=== PATIENT | male | born 1945 | race Caucasian/White ===

== ENCOUNTER 2017-06-30 14:07 | Inpatient (IN) | payer MEDICARE, SELFPAY ==
[2017-06-30] MEDS: Sodium Chloride 0.9% 1,000 ML IV SCH (16:30)
[2017-06-30] MEDS ORDERED: Norepinephrine 8 MG/0.9% NS 250 ML ONE (16:48)
[2017-06-30] MEDS ORDERED: Norepinephrine 8 MG/0.9% NS 250 ML IVPB SCH (17:00)
--- NOTE | 2017-06-30 19:17 | RAD ---
PORTABLE CHEST: 06/30/17 HISTORY: Post intubation. Endotracheal and NG tubes are in satisfactory position. Heart size is within normal limits. The patie nt is rotated on this study. There is interstitial alveolar lung changes which are predominantly in t he perihilar distribution, most consistent with pulmonary edema. There is scoliotic change to the spi ne. IMPRESSION: 1. Endotracheal and NG tubes in satisfactory position. 2. Pulmonary edema changes. POS: SHEREE
[2017-06-30 20:07] LABS: Bilirubin Small (Negative); Blood, Urine Trace (Negative); Clarity CLOUDY (Clear); Glucose, Urine (Dipstick) Negative (Negative); Leukocyte Trace (Negative); Nitrite Negative (Negative); Protein, Urine (Dipstick) 100 mg/dL (Neg-Trace); Specific Gravity, Urine 1.025 (1.002-1.036); Urobilinogen 0.2 mg/dL (0.2-1.0); pH, Urine 5.5 (5.0-9.0)
[2017-06-30 20:12] LABS: Bacteria/HPF None Seen HPF (None Seen); Pathc Cast-AUWi Flag 1.76 (0-2.49); Yeast-AUWi Flag 170.3 (0-25.0)
[2017-06-30 20:21] LABS: Crystals/HPF 1+ AMORPH URATES HPF (Negative); Hyaline Casts/LPF 4-6 HYALINE CAST LPF (0-3 Hyaline); Renal Epithelial 0-3 HPF (0-3); Transitional Epithelial 0-3 HPF (0-3); Yeast-All Forms None Seen HPF (None Seen)
[2017-06-30] MEDS ORDERED: Cefepime 1 GM in Sodium Chloride 0.9% 100 ML IVPB SCH (21:00)
[2017-06-30] MEDS: Cefepime 1 GM, Admixture Fee 1 EACH in Sterile Water 10 ML SLOW IVP SCH (21:17)
[2017-06-30] MEDS: Enoxaparin Sodium 40 MG/0.4 ML SYRINGE SC SCH (21:18)
--- NOTE | 2017-06-30 23:11 | PRG ---
DATE OF SERVICE: 06/30/2017 The patient was transferred from [place] earlier. There were no family members. I finally got a maria ce to talk to the patient's refrigeration mechanic who is nephew. The patient has no other family members, no , he has no kids, he has got two brothers, but the ne phew is apparently his refrigeration mechanic. He was a DNR before, but he tells me he was doing well yesterday. His oxygen saturations were 95%, he is breathing well. This morning, his condition drastically ramana nged. Therefore, he rescinded the DNR status. I made him a full code since he felt he wanted to giv e him all the best options. He was transferred here following intubation. I discussed the findings with the nephew that the patient has ARDS, the prognosis is poor, mortality is very high at least 50% . We are going to continue all supportive care for the time being including vent, nutrition, PT, antibi otics, etc. Additional information from the nephew that the patient has been healthy. He has remote history of a ppendix surgery and hernia operation. Apparently, he was taking no medications. He is nonsmoker wit h no previous history of TB, pneumonia, or bronchial asthma. He has a longstanding history of stasis of his edema, which has been a poor circulation, but his cardiac status has been normal. IMPRESSION: Respiratory failure, adult respiratory distress syndrome secondary to the flu. Stasis e patrick. Continue supportive care as noted above.
--- NOTE | 2017-07-01 01:16 | HP ---
CHIEF COMPLAINT: Transferred to this hospital, intubated with flu positive. HISTORY OF PRESENT ILLNESS: He is a 72-year-old went to another ER today because of fever and chills, having vomiting, diarrhea, and cough for a few days. Over there, flu came back positive. He also had hyponatremia 124, so they treated with IV fluid and they tried to admit him to the hospital over there, he got sick, he got hypoxic and eventually they intubated him and sedated him. After intubation, they started to transfer the patient to this hospital and patient was transferred to the hospital. Dr. Avila his powerhouse mechanic supervisor was also consulted. PAST MEDICAL HISTORY: From the chart. He has a history of brain tumor as a child, scoliosis. FAMILY HISTORY: Noncontributory. MEDICATIONS: None. ALLERGIES: No medications. SOCIAL HISTORY: Nonsmoker, lives with a nephew. REVIEW OF SYSTEMS: Unobtainable because patient is intubated and sedated. PHYSICAL EXAMINATION: GENERAL: Elderly man, intubated and sedated on 100%Fio2 NECK: Supple, no JVD. CHEST: Diminished breath sounds. CARDIOVASCULAR: S1, S2 audible. No S3, S4. ABDOMEN: Soft. EXTREMITIES: No pedal edema. LABORATORY DATA: Shows WBC 10.1 wi Chest shows cardiomegaly with pulmonary edema. His glucose is 118, creatinine 0.6, sodium 131, potassium 3.4, chloride 88, carbon dioxide 32. Flu positive. ASSESSMENT AND PLAN: 1. Acute respiratory failure with hypoxia secondary to flu with b/l pneumonia. He is on IV cefepime 2 grams q.12 hours, IV Levaquin 750 every day, and Tamiflu per NG tube 2. Hypotension . Septic shock, continue pressure support IV norepinephrine. 3. Prognosis guarded. 4. Deep venous thrombosis prophylaxis with Protonix and Lovenox. 5 D/w Nephew about his condition, He decided for NO CPR now MTDD
[2017-07-01 04:39] LABS: #Lymphocytes 0.4 thou/uL (1.20-3.40); #Monocytes 0.3 thou/uL (0.11-0.59); #Neutrophils 4.3 thou/uL (1.40-6.50); %Lymphocytes 8.2 % (21.0-51.0); %Monocytes 6.1 % (0.0-10.0); %Neutrophils 85.7 % (42.0-75.0); Hemoglobin 14.3 g/dL (14.0-18.0); Mean Corpuscular Hemoglobin 31.3 pg (27.0-31.0); Mean Corpuscular Volume 97.6 fl (80.0-94.0); Mean Platelet Volume 7.1 fL (7.4-10.4); Platelet Count 202 thou/uL (130-400); RBC Distribution Width 12.1 % (11.5-14.5); Red Blood Cell (RBC) Count 4.58 mill/uL (4.70-6.10)
[2017-07-01 04:48] LABS: Anion Gap 16 mmol/L (10-20); BUN (Urea Nitrogen) 21 mg/dL (8.4-25.7); Calc. Creatinine Clearance 88 mL/min (70-130); Calcium 8.6 mg/dL (7.8-10.44); Carbon Dioxide 31 mmol/L (23-31); Chloride 93 mmol/L (98-107); Estimated GFR-MDRD Greater than 90; Glucose 136 mg/dL (80-115); Potassium 3.2 mmol/L (3.5-5.1); Sodium 137 mmol/L (136-145)
[2017-07-01] MEDS: Sodium Chloride 0.9% 1,000 ML IV SCH ×2 (06:24→13:18)
[2017-07-01 07:54] LABS: Actual Bicarbonate (HCO3a) 31.7 mEq/L (22-26); Base Excess (BEa) 6.4 mEq/L (0 (+/-) 2.5); Calcium, Ionized 1.1 mmol/L (1.12-1.30); Hematocrit-ABG 43.5 % (42.0-52.0); Hemoglobin (Hb) 13.6 g/dL (14.0-18.0); O2 Tension (PaO2) 106.6 mmHg (80.0-100.0); pH, Arterial 7.44 (7.35-7.45)
[2017-07-01 07:56] LABS: Puncture Site LRA
[2017-07-01] MEDS ORDERED: Pantoprazole 40 MG VIAL IVP SCH (09:00)
[2017-07-01] MEDS ORDERED: Oseltamivir 6 MG/ML ORAL SUSP PO SCH (09:00)
[2017-07-01] MEDS ORDERED: FLU VACC TS2017-18 (>65YR) 0.5 ML SYRINGE IM ONE (09:00)
[2017-07-01] MEDS ORDERED: Sedation Protocol FS ONE (09:20)
[2017-07-01] MEDS ORDERED: CCU Electrolyte Replacement 1 EACH FS ONE (09:20)
--- NOTE | 2017-07-01 09:25 | PDOC.PULCC ---
CCU Progress Note: Subj/Obj - Subjective Date: 07/01/17 Time: 09:24 - Objective Allergies/Adverse Reactions: Allergies Allergy/AdvReac Type Severity Reaction Status Date / Time No Known Allergies Allergy Unverified 06/30/17 17:49 Medications: Current Medications Albuterol/Ipratropium (Duoneb) 3 ml NEB [id number] [facility] Last Admin: 07/01/17 06:59 Dose: 3 ml Enoxaparin Sodium (Lovenox) 40 mg SC 2100 [facility] Last Admin: 06/30/17 21:18 Dose: 40 mg Levofloxacin 750 mg/ Device 150 mls @ 100 mls/hr IVPB Q24HR [facility] Last Admin: 06/30/17 19:34 Dose: 150 mls Norepinephrine Bitartrate (Levophed) 250 mls @ 0 mls/hr IVPB INF SAN[facility]A; Titrate PRN Reason: Protocol Sodium Chloride (Normal Saline 0.9%) 1,000 mls @ 100 mls/hr IV .Q10H [facility] Last Admin: 07/01/17 06:24 Dose: 1,000 mls Cefepime HCl 1 gm/Miscellaneous Medication 1 each/ Sterile Water 10 mls @ 120 mls/hr SLOW IVP BID [facility] Last Admin: 06/30/17 21:17 Dose: 10 mls Methylprednisolone Sodium Succinate (Solu-Medrol) 40 mg IVP Q6HR [facility] Last Admin: 07/01/17 06:24 Dose: 40 mg Oseltamivir Phosphate (Tamiflu) 75 mg PO BID [facility] Pantoprazole Sodium (Protonix) 40 mg PO DAILY [facility] MAR Reviewed: Yes Vital Signs and I&O: Vital Signs Temp 98.4 F 07/01/17 08:00 Pulse 45 L 07/01/17 07:00 Resp 21 H 07/01/17 06:59 BP 145/71 H 07/01/17 07:00 Pulse Ox 96 07/01/17 06:59 Intake & Output 06/30/17 07/01/17 07/01/17 18:59 06:59 18:59 Intake Total 410 306 Output Total 130 440 94 Balance 280 -134 -94 Weight 145 lb 8.081 oz Intake: Intake, IV Amount 410 306 Norepinephrine 8 MG/0.9% 59 132 NS 250 ml @ Titrate IVPB INF [facility] Rx#:[id number] Sodium Chloride 0.9% 1, 351 174 000 ml @ 100 mls/hr IV . Q10H [facility] Rx#:[id number] Oral 0 Output: Output, Baer 130 440 94 Other: Voiding Method Indwelling Catheter Indwelling Catheter # Bowel Movements 0 Vent Setting: SIMV 15/400/peep12/ps12/60 Spontaneous Breathing Test: not done (not eligible) CCU Progress Note: Exam - Physical Exam HEENT: PERRLA, moist MMs, sclera anicteric Deviation from normal: eyes deviated upward Neck: no nodes, no JVD Cardiovascular: RRR Focused Respiratory Location: rhonchi: Right, Left Gastrointestinal: soft, non-tender, positive bowel sounds Musculoskeletal: no edema Neurological: moves all 4 limbs Lymphatic: no nodes Deviation from normal: encephalopathic Skin: no rash - Labs Result Diagrams: 07/01/17 03:14 07/01/17 03:14 Lab results: Laboratory Results - last 24 hr 06/30/17 07/01/17 07/01/17 19:40 03:14 03:14 WBC 5.0 RBC 4.58 L Hgb 14.3 Hct 44.7 MCV 97.6 H MCH 31.3 H MCHC 32.0 RDW 12.1 Plt Count 202 MPV 7.1 L Neutrophils % 85.7 H Lymphocytes % 8.2 L Monocytes % 6.1 Eosinophils % 0.0 Basophils % 0.0 Neutrophils # 4.3 Lymphocytes # 0.4 L Monocytes # 0.3 Eosinophils # 0.0 Basophils # 0.0 Specimen Type Puncture Site Bicarbonate Actual ABG pH ABG pCO2 ABG pO2 ABG O2 Sat Calc/Alan ABG O2 Content ABG Base Excess ABG Hematocrit ABG Hemoglobin ABG Oxyhemoglobin ABG Carboxyhemoglobin ABG Methemoglobin ABG Deoxyhemoglobin Raghav Test A-a O2 Gradient Ionized Calcium Mode of Support Mechanical Rate Inspired O2 Tidal Volume Pressure Support PEEP or CPAP Sodium 137 Potassium 3.2 L Chloride 93 L Carbon Dioxide 31 Anion Gap 16 BUN 21 Creatinine 0.73 Estimated GFR (MDRD) Greater than 90 Glucose 136 H Calcium 8.6 Urine Color JOHNNA Urine Clarity CLOUDY Urine pH 5.5 Ur Specific Weiner 1.025 Urine Protein 100 H Urine Glucose (UA) Negative Urine Ketones Trace H Urine Blood Trace H Urine Nitrite Negative Urine Bilirubin Small H Urine Urobilinogen 0.2 Ur Leukocyte Esterase Trace H Urine RBC 7-10 H Urine WBC 11-20 H Ur Squamous Epith Cells 4-6 H Ur Transition Epith Cell 0-3 Ur Renal Epithelial Cell 0-3 Urine Crystals 1+ AMORPH URATES Urine Bacteria None Seen Hyaline Casts 4-6 HYALINE CAST H Other Casts 0-3 FINELY GRAN H Urine Yeast None Seen 07/01/17 07:30 WBC RBC Hgb Hct MCV MCH MCHC RDW Plt Count MPV Neutrophils % Lymphocytes % Monocytes % Eosinophils % Basophils % Neutrophils # Lymphocytes # Monocytes # Eosinophils # Basophils # Specimen Type ARTERIAL Puncture Site LRA Bicarbonate Actual 31.7 H ABG pH 7.44 ABG pCO2 48.0 H ABG pO2 106.6 H ABG O2 Sat Calc/Alan 98.0 ABG O2 Content 18.6 ABG Base Excess 6.4 H ABG Hematocrit 43.5 ABG Hemoglobin 13.6 L ABG Oxyhemoglobin 96.6 ABG Carboxyhemoglobin 0.9 ABG Methemoglobin 0.6 ABG Deoxyhemoglobin 1.9 Raghav Test POSITIVE A-a O2 Gradient 408.600 H Ionized Calcium 1.1 L Mode of Support SIMV.PSV Mechanical Rate 15 Inspired O2 80 Tidal Volume 400 Pressure Support 10 PEEP or CPAP 8.0 Sodium 136 Potassium 2.8 L Chloride 92 L Carbon Dioxide Anion Gap BUN Creatinine Estimated GFR (MDRD) Glucose Calcium Urine Color Urine Clarity Urine pH Ur Specific Weiner Urine Protein Urine Glucose (UA) Urine Ketones Urine Blood Urine Nitrite Urine Bilirubin Urine Urobilinogen Ur Leukocyte Esterase Urine RBC Urine WBC Ur Squamous Epith Cells Ur Transition Epith Cell Ur Renal Epithelial Cell Urine Crystals Urine Bacteria Hyaline Casts Other Casts Urine Yeast CCU Progress Note: A/P - Time Spent with Patient Time: 30 min cc time - Plan Plan: Acute Respiratory Failure requiring mechanical ventilation Influenza A Bilateral PNA Septic Shock Plan: increase peep continue steroids, nebs, and ABX not weanable Start TF dc levophed midline
[2017-07-01] MEDS ORDERED: Potassium Phosphate 15 MMOL in Sodium Chloride 0.9% 250 ML 250 ML IV PRN (09:41)
[2017-07-01] MEDS ORDERED: CCU ELECTROLYTE REPLACEMENT PROTOCOL FS PRN (09:41)
[2017-07-01] MEDS ORDERED: Potassium Phosphate 12 MMOL in Sodium Chloride 0.9% 250 ML 250 ML IV PRN (09:41)
[2017-07-01] MEDS ORDERED: Potassium Chloride 40 MEQ in Sodium Chloride 0.9% 250 ML 250 ML IVPB PRN (09:41)
[2017-07-01] MEDS ORDERED: DISCONTINUE PREVIOUS NARCOTIC PAIN MEDICATIONS AND BENZODIAZEPINES FS SCH (09:41)
[2017-07-01] MEDS ORDERED: Propofol 1,000 MG/100 ML VIAL IV PRN (09:41)
[2017-07-01] MEDS ORDERED: Potassium Chloride 20 MEQ TAB PO PRN (09:41)
[2017-07-01] MEDS ORDERED: Magnesium Oxide 400 MG TAB PO PRN ×2 (09:41)
[2017-07-01] MEDS ORDERED: Lorazepam 2 MG/ML VIAL SLOW IVP PRN (09:41)
[2017-07-01] MEDS ORDERED: Potassium Phosphate 9 MMOL in Sodium Chloride 0.9% 100 ML IVPB PRN (09:41)
[2017-07-01] MEDS ORDERED: Potassium Chloride 40 MEQ in Premix Bag 1 BAG IVPB PRN (09:41)
[2017-07-01] MEDS ORDERED: Magnesium 2 GM/NS 0.9% 100 ML 2 GM in Premix Bag 1 BAG IVPB PRN (09:41)
[2017-07-01] MEDS ORDERED: Morphine 4 MG/ML VIAL SLOW IVP PRN (09:45)
[2017-07-01] MEDS: Cefepime 1 GM, Admixture Fee 1 EACH in Sterile Water 10 ML SLOW IVP SCH ×2 (09:50→20:50)
--- NOTE | 2017-07-01 10:09 | RAD ---
PORTABLE CHEST ONE VIEW: 07/01/2017 at 4:47 a.m. HISTORY: Respiratory failure. FINDINGS/IMPRESSION: Comparison is made with the exam from the previous day. Endotracheal and nasogastric tubes remain in place. The heart size is normal. Bilateral interstitia l and alveolar lung changes are again seen without significant interval change. No pneumothoraces or large effusions are identified. POS: H
--- NOTE | 2017-07-01 11:33 | CON ---
DATE OF CONSULTATION: 06/30/2017 HISTORY OF PRESENT ILLNESS: He is a 72-year-old gentleman who was transferred from the [facility] in [place], [place], with acute respiratory failure, intubated. His diagnosis was the flu with ARDS. The physician from the [facility] notified me abo ut 12 o'clock about a transfer. He had earlier spoken to the hospitalist, he arrived at [facility] around about 4:30 p.m. The story we got subsequently was that he was on BiPAP and apparently he was doing poorly. X-ray showed diffuse pulmonary infiltrates. They were unable to transfer him to any other institute, therefore they tried [facility] where they had a bed. He was to be transferred. Shortly after leaving his room, in ambulance became acutely dyspneic, hypoxic from what we know, he was taken to the ER over there and was intubated as per the information that I get. He had presented initially to the hospital with diagnoses of weak, cough, cold, congestion, fever of 3 days' duration. He had fallen down. He was being treated with antibiotics and apparently appropriate medication until his condition got w orse. Family members are to be arriving shortly and Dr. Avila is going to get additional history from the [facility] extensively. To note on 06/27/2017, the patient's information from the doctor said he was doing better. On reviewing his lab data, it appears that his sodium was low at 128, blood pressure 120/70, saturati ons are 98%, pulse 68, respirations 22, and his creatinine was 0.5. He was found to be hyponatremic, chronic diarrhea, cognitive impairment, fluid overload, and pedal ed teresa as per the doctor over there and continued antibiotics. Apparently, his hyponatremia worsened from what we know. His note from today shows he was getting __ ___, Lasix, Solu-Medrol with the DNR status. Apparently, somewhere down the line his DNR status was rescinded, and he was transferred here. Additional information is that the patient has had previous brain tumor, some kind of scoliosis in e past. Once again, we will try and get additional information from family members when they arrive. His list of medicine includes Tamiflu 75 mg twice a day, neb treatments, Lasix 80 IV, Zosyn antibio tic, Levaquin antibiotic. I am not able to see elected admitting H and P on the patient. PAST SURGICAL HISTORY: Previous surgeries are unclear at this time. PAST MEDICAL HISTORY: As noted above, we will get additional information from family as they arrive. He is presently in the ICU. He is hypotensive. PHYSICAL EXAMINATION: VITAL SIGNS: Blood pressure 74/48. We will start Levophed. Sats are 98%, pulse is 59, respirations 28. Presently on 100% FIO2, and 5 of PEEP, rate of 16. Neurologically sedated. CHEST: Minimal crackles without any wheezing. CARDIAC: Normal S1, S2. No gallops. ABDOMEN: No masses. He has chronic stasis changes in the legs. He has got scoliosis of his chest and spine. X-ray emergency stat does show diffuse interstitial infiltrates consistent with ARDS. IMPRESSION: 1. Status post influenza A. 2. Diffuse pulmonary infiltrates, acute respiratory distress syndrome, kyphoscoliosis, brain tumor. 2. Hyponatremia. PLAN: To note, we will start him on broad-spectrum antibiotics including steroids, maxipime, Levaqui n, Tamiflu. Echo is being ordered. Serial exam. We will discuss with family as they arrive. Further treatment after discussion with the family at [facility]. Additional input. Prognosis remains guarded. He is a DNR before. We will discuss with the family ongoing issues [facility] they want to make him a DNR once again. This is a one hour critical care time extensively with the patient at the bedside and discussion with the family members.
[2017-07-01] MEDS ORDERED: Sterile Water 0 ML ONE (11:52)
--- NOTE | 2017-07-01 12:57 | PDOC.PN ---
- Subjective Encounter Start Date: 07/01/17 Encounter Start Time: 13:07 Subjective: Pt seen and examined for Acute Respiratory failure with Hypoxia -: Septic Shock, Flu, B/L PNA -: intubated and sedated - Objective Resuscitation Status: Resuscitation Status FULL:Full Resuscitation MAR Reviewed: Yes Vital Signs & Weight: Vital Signs (12 hours) Temp Pulse Resp BP Pulse Ox 07/01/17 11:02 60 07/01/17 08:00 98.4 F 07/01/17 07:00 45 L 145/71 H 07/01/17 06:59 56 L 21 H 96 07/01/17 04:00 99.0 F 22 H 07/01/17 02:43 61 Weight Admit Weight 145 lb Weight 145 lb 8.081 oz Most Recent Monitor Data Heart Rate from ECG 67 NIBP 122/68 NIBP BP-Mean 77 Respiration from ECG 29 SpO2 90 I&O: 06/30/17 07/01/17 07/02/17 06:59 06:59 06:59 Intake Total 716 Output Total 570 94 Balance 146 -94 Result Diagrams: 07/01/17 03:14 07/01/17 03:14 Phys Exam - Physical Examination Intubated and sedated Neck: no nodes, no JVD, supple, full ROM Respiratory: wheezing present Diminished Breath sounds, B/L Crackles Cardiovascular: RRR, no significant murmur, no rub Gastrointestinal: soft, non-tender, no distention, positive bowel sounds Musculoskeletal: no edema, pulses present Neurological: non-focal Lymphatic: no nodes Skin: no rash Dx/Plan (1) Acute respiratory failure requiring reintubation Code(s): J96.00 - ACUTE RESPIRATORY FAILURE, UNSP W HYPOXIA OR HYPERCAPNIA Status: Acute (2) Septic shock Code(s): A41.9 - SEPSIS, UNSPECIFIED ORGANISM; R65.21 - SEVERE SEPSIS WITH SEPTIC SHOCK Status: Acute (3) Pneumonia Code(s): J18.9 - PNEUMONIA, UNSPECIFIED ORGANISM Status: Acute (4) Flu Code(s): J11.1 - FLU DUE TO UNIDENTIFIED INFLUENZA VIRUS W OTH RESP MANIFEST Status: Acute (5) ARDS (adult respiratory distress syndrome) Code(s): J80 - ACUTE RESPIRATORY DISTRESS SYNDROME Status: Acute - Plan DVT proph w/lovenox 1) Continue Ventilator support -: 2) Continue IV Cefepime and Levaquin, await blood C/s -: 3) Prognosis guarded * . Review of Systems - Medications/Allergies Allergies/Adverse Reactions: Allergies Allergy/AdvReac Type Severity Reaction Status Date / Time No Known Allergies Allergy Unverified 06/30/17 17:49 Medications: Current Medications Albuterol/Ipratropium (Duoneb) 3 ml NEB [id number] [facility] Last Admin: 07/01/17 06:59 Dose: 3 ml Enoxaparin Sodium (Lovenox) 40 mg SC 2100 [facility]DR[facility] Last Admin: 06/30/17 21:18 Dose: 40 mg Levofloxacin 750 mg/ Device 150 mls @ 100 mls/hr IVPB Q24HR [facility] Last Admin: 06/30/17 19:34 Dose: 150 mls Norepinephrine Bitartrate (Levophed) 250 mls @ 0 mls/hr IVPB INF [facility]; Titrate PRN Reason: Protocol Sodium Chloride (Normal Saline 0.9%) 1,000 mls @ 100 mls/hr IV .Q10H [facility] Last Admin: 07/01/17 06:24 Dose: 1,000 mls Cefepime HCl 1 gm/Miscellaneous Medication 1 each/ Sterile Water 10 mls @ 120 mls/hr SLOW IVP BID [facility] Last Admin: 07/01/17 09:50 Dose: 10 mls Potassium Chloride 40 meq/ (Sodium Chloride) 270 mls @ 135 mls/hr IVPB ASDIR PRN PRN Reason: FOR SERUM K+ 2.5 - 3.5 Potassium Chloride 40 meq/ (Device) 100 mls @ 50 mls/hr IVPB ASDIR PRN PRN Reason: FOR SERUM K+ 2.5 - 3.5 Magnesium Sulfate 1 gm/ Sodium (Chloride) 102 mls @ 102 mls/hr IV PRN PRN PRN Reason: MAG LEVEL 1.4 - 2.0 Magnesium Sulfate 2 gm/ Device 100 mls @ 100 mls/hr IVPB ASDIR PRN PRN Reason: MAGNESIUM < 1.4 Potassium Phosphate 9 mmol/ (Sodium Chloride) 103 mls @ 25.75 mls/hr IVPB ASDIR PRN PRN Reason: Phosphate 1.0-1.8 Potassium Phosphate 12 mmol/ (Sodium Chloride) 254 mls @ 63.5 mls/hr IV ASDIR PRN PRN Reason: Serum phosphate 0.5-0.9 Potassium Phosphate 15 mmol/ (Sodium Chloride) 255 mls @ 63.75 mls/hr IV ASDIR PRN PRN Reason: Serum Phos < 0.5 Fentanyl Citrate 2,000 mcg/ (Sodium Chloride) 100 mls @ 0 mls/hr IV INF SANDRA; Per Protocol PRN Reason: Protocol Stop: 07/31/17 09:41 Fentanyl Citrate (Fentanyl Bolus) 250 mls @ 0 mls/hr IVPB PRN PRN; As Directed PRN Reason: Breakthrough pain Stop: 07/31/17 09:41 Lorazepam (Ativan) 2 mg SLOW IVP Q2H PRN PRN Reason: Anxiety to achieve Cannon 2-3 Stop: 07/31/17 09:41 Magnesium Oxide (Magnesium Oxide) 400 mg PO BIDPRN PRN PRN Reason: FOR SERUM MAG 1.4 - 2.0 Magnesium Oxide (Magnesium Oxide) 800 mg PO PRN PRN PRN Reason: FOR SERUM MAG < 1.4 Methylprednisolone Sodium Succinate (Solu-Medrol) 40 mg IVP Q6HR [facility] Last Admin: 07/01/17 06:24 Dose: 40 mg Miscellaneous Medication (Phos-Nak) 1 pkt PO TIDPRN PRN PRN Reason: FOR PHOS LEVEL 1.0 - 1.8 Miscellaneous Medication (Phos-Nak) 2 pkt PO TIDPRN PRN PRN Reason: FOR PHOS LEVEL 0.5 - 1.0 Morphine Sulfate (Morphine) 2 mg SLOW IVP Q2H PRN PRN Reason: Breakthrough pain Stop: 07/31/17 09:41 Ccu Electrolyte (Replacement Protocol) 0 each FS PRN PRN PRN Reason: FOR ELECTROLYTE REPLACEMENT Discontinue Previous Narcotic Pain Medications And Benzodiazepines 1 each FS .ONE SANDRA Stop: 07/31/17 09:41 Oseltamivir Phosphate (Tamiflu) 75 mg PO BID [facility] Potassium Chloride (K-Dur) 40 meq PO ASDIR PRN PRN Reason: FOR SERUM K+ 2.5 - 3.5 Potassium Chloride (Klor-Con) 40 meq PER TUBE ASDIR PRN PRN Reason: FOR SERUM K+ 2.5-3.5 Propofol (Diprivan) 1,000 mg IV INF PRN; Protocol PRN Reason: TO ACHIEVE CANNON SCORE 2-3 Stop: 07/31/17 09:41
[2017-07-01] MEDS: Sterile Water 10 ML ONE ×2 (13:09→18:23)
[2017-07-01] MEDS: Enoxaparin Sodium 40 MG/0.4 ML SYRINGE SC SCH (20:50)
[2017-07-01] MEDS: Oseltamivir 6 MG/ML ORAL SUSP PO SCH (20:50)
[2017-07-01] MEDS: fentaNYL Citrate/PF 2,000 MCG in Sodium Chloride 0.9% 60 ML IV SCH (21:19)
[2017-07-02] MEDS: Sodium Chloride 0.9% 1,000 ML IV SCH (00:31)
[2017-07-02 06:16] LABS: #Lymphocytes 0.6 thou/uL (1.20-3.40); #Monocytes 0.4 thou/uL (0.11-0.59); #Neutrophils 3.2 thou/uL (1.40-6.50); %Basophils 0.2 % (0.0-1.0); %Eosinophils 0.1 % (0.0-10.0); %Lymphocytes 13.4 % (21.0-51.0); %Neutrophils 77.4 % (42.0-75.0); Mean Corpuscular HGB CONC 31.4 g/dL (32.0-36.0); Mean Corpuscular Hemoglobin 30.6 pg (27.0-31.0); Mean Corpuscular Volume 97.7 fl (80.0-94.0); Mean Platelet Volume 7.2 fL (7.4-10.4); Platelet Count 206 thou/uL (130-400); RBC Distribution Width 12.3 % (11.5-14.5); Red Blood Cell (RBC) Count 4.26 mill/uL (4.70-6.10); White Blood Cell (WBC) Count 4.1 thou/uL (4.8-10.8)
[2017-07-02 06:34] LABS: Anion Gap 14 mmol/L (10-20); BUN (Urea Nitrogen) 28 mg/dL (8.4-25.7); Calc. Creatinine Clearance 99 mL/min (70-130); Calcium 8.5 mg/dL (7.8-10.44); Carbon Dioxide 31 mmol/L (23-31); Chloride 102 mmol/L (98-107); Estimated GFR-MDRD Greater than 90; Glucose 153 mg/dL (80-115); Sodium 143 mmol/L (136-145)
[2017-07-02 07:04] LABS: Actual Bicarbonate (HCO3a) 32.7 mEq/L (22-26); Base Excess (BEa) 7.1 mEq/L (0 (+/-) 2.5); CO2 Tension 50.3 mmHg (35.0-45.0); Calcium, Ionized 1.2 mmol/L (1.12-1.30); Hematocrit-ABG 41.1 % (42.0-52.0); Hemoglobin (Hb) 13.2 g/dL (14.0-18.0); O2 Tension (PaO2) 89.4 mmHg (80.0-100.0); pH, Arterial 7.43 (7.35-7.45)
[2017-07-02 07:15] LABS: ALV-art Gradient 132.925 (0-20); Puncture Site RR
--- NOTE | 2017-07-02 08:48 | PDOC.PULCC ---
CCU Progress Note: Subj/Obj - Subjective Date: 07/02/17 Time: 08:47 Subjective: opens eyes, won't follow commands. Sedated on fentanyl - Objective Allergies/Adverse Reactions: Allergies Allergy/AdvReac Type Severity Reaction Status Date / Time No Known Allergies Allergy Unverified 06/30/17 17:49 Medications: Current Medications Albuterol/Ipratropium (Duoneb) 3 ml NEB [id number] SANDRA Last Admin: 07/02/17 06:45 Dose: 3 ml Enoxaparin Sodium (Lovenox) 40 mg SC 2100 SANDR[facility] Last Admin: 07/01/17 20:50 Dose: 40 mg Levofloxacin 750 mg/ Device 150 mls @ 100 mls/hr IVPB Q24HR [facility] Last Admin: 07/01/17 18:43 Dose: 150 mls Cefepime HCl 1 gm/Miscellaneous Medication 1 each/ Sterile Water 10 mls @ 120 mls/hr SLOW IVP BID SANDRA Last Admin: 07/01/17 20:50 Dose: 10 mls Potassium Chloride 40 meq/ (Sodium Chloride) 270 mls @ 135 mls/hr IVPB ASDIR PRN PRN Reason: FOR SERUM K+ 2.5 - 3.5 Potassium Chloride 40 meq/ (Device) 100 mls @ 50 mls/hr IVPB ASDIR PRN PRN Reason: FOR SERUM K+ 2.5 - 3.5 Magnesium Sulfate 1 gm/ Sodium (Chloride) 102 mls @ 102 mls/hr IV PRN PRN PRN Reason: MAG LEVEL 1.4 - 2.0 Magnesium Sulfate 2 gm/ Device 100 mls @ 100 mls/hr IVPB ASDIR PRN PRN Reason: MAGNESIUM < 1.4 Potassium Phosphate 9 mmol/ (Sodium Chloride) 103 mls @ 25.75 mls/hr IVPB ASDIR PRN PRN Reason: Phosphate 1.0-1.8 Potassium Phosphate 12 mmol/ (Sodium Chloride) 254 mls @ 63.5 mls/hr IV ASDIR PRN PRN Reason: Serum phosphate 0.5-0.9 Potassium Phosphate 15 mmol/ (Sodium Chloride) 255 mls @ 63.75 mls/hr IV ASDIR PRN PRN Reason: Serum Phos < 0.5 Fentanyl Citrate 2,000 mcg/ (Sodium Chloride) 100 mls @ 0 mls/hr IV INF SANDRA; Per Protocol PRN Reason: Protocol Stop: 07/31/17 09:41 Last Admin: 07/01/17 21:19 Dose: 100 mls Fentanyl Citrate (Fentanyl Bolus) 250 mls @ 0 mls/hr IVPB PRN PRN; As Directed PRN Reason: Breakthrough pain Stop: 07/31/17 09:41 Dextrose/Sodium Chloride (D5 1/4 Ns) 1,000 mls @ 75 mls/hr IV .[id number] [facility] Lorazepam (Ativan) 2 mg SLOW IVP Q2H PRN PRN Reason: Anxiety to achieve Cannon 2-3 Stop: 07/31/17 09:41 Magnesium Oxide (Magnesium Oxide) 400 mg PO BIDPRN PRN PRN Reason: FOR SERUM MAG 1.4 - 2.0 Magnesium Oxide (Magnesium Oxide) 800 mg PO PRN PRN PRN Reason: FOR SERUM MAG < 1.4 Methylprednisolone Sodium Succinate (Solu-Medrol) 40 mg IVP Q6HR [facility] Last Admin: 07/02/17 05:35 Dose: 40 mg Miscellaneous Medication (Phos-Nak) 1 pkt PO TIDPRN PRN PRN Reason: FOR PHOS LEVEL 1.0 - 1.8 Miscellaneous Medication (Phos-Nak) 2 pkt PO TIDPRN PRN PRN Reason: FOR PHOS LEVEL 0.5 - 1.0 Morphine Sulfate (Morphine) 2 mg SLOW IVP Q2H PRN PRN Reason: Breakthrough pain Stop: 07/31/17 09:41 Ccu Electrolyte (Replacement Protocol) 0 each FS PRN PRN PRN Reason: FOR ELECTROLYTE REPLACEMENT Discontinue Previous Narcotic Pain Medications And Benzodiazepines 1 each FS .ONE [facility] Stop: 07/31/17 09:41 Oseltamivir Phosphate (Tamiflu) 75 mg PO BID [facility] Last Admin: 07/01/17 20:50 Dose: 75 mg Potassium Chloride (K-Dur) 40 meq PO ASDIR PRN PRN Reason: FOR SERUM K+ 2.5 - 3.5 Potassium Chloride (Klor-Con) 40 meq PER TUBE ASDIR PRN PRN Reason: FOR SERUM K+ 2.5-3.5 Last Admin: 07/01/17 13:17 Dose: 40 meq Propofol (Diprivan) 1,000 mg IV INF PRN; Protocol PRN Reason: TO ACHIEVE CANNON SCORE 2-3 Stop: 07/31/17 09:41 MAR Reviewed: Yes Vital Signs and I&O: Vital Signs Temp 99.0 F 07/02/17 04:00 Pulse 73 07/02/17 06:45 Resp 22 H 07/02/17 06:45 BP 107/64 07/01/17 16:10 Pulse Ox 97 07/02/17 06:45 Intake & Output 07/01/17 07/02/17 07/02/17 18:59 06:59 18:59 Intake Total 1484.7 400 Output Total 446 372 30 Balance 1038.7 28 -30 Weight 145 lb 8.081 oz Intake: Intake, IV Amount 1132.7 Norepinephrine 8 MG/0.9% 20.7 NS 250 ml @ Titrate IVPB INF SANDRA Rx#:[id number] Sodium Chloride 0.9% 1, 1112 000 ml @ 100 mls/hr IV . Q10H SANDRA Rx#:[id number] Tube Feeding 172 Tube Irrigant 180 400 Output: Output, Baer 446 372 30 Other: Voiding Method Indwelling Catheter Indwelling Catheter # Bowel Movements 0 Vent Setting: SIMV 15 -40% Spontaneous Breathing Test: not done CCU Progress Note: Exam - Physical Exam Constitutional: NAD HEENT: PERRLA Neck: no nodes, no JVD Cardiovascular: RRR Focused Respiratory Location: rales: Right, Left Gastrointestinal: soft, non-tender Musculoskeletal: no edema Neurological: non-focal Lymphatic: no nodes Skin: no rash - Labs Result Diagrams: 07/02/17 05:39 07/02/17 05:39 Lab results: Laboratory Results - last 24 hr 07/02/17 07/02/17 07/02/17 05:39 05:39 06:45 WBC 4.1 L RBC 4.26 L Hgb 13.0 L Hct 41.6 L MCV 97.7 H MCH 30.6 MCHC 31.4 L RDW 12.3 Plt Count 206 MPV 7.2 L Neutrophils % 77.4 H Lymphocytes % 13.4 L Monocytes % 9.0 Eosinophils % 0.1 Basophils % 0.2 Neutrophils # 3.2 Lymphocytes # 0.6 L Monocytes # 0.4 Eosinophils # 0.0 Basophils # 0.0 Specimen Type ARTERIAL Puncture Site RR Bicarbonate Actual 32.7 H ABG pH 7.43 ABG pCO2 50.3 H ABG pO2 89.4 ABG O2 Sat Calc/Alan 97.2 ABG O2 Content 17.9 ABG Base Excess 7.1 H ABG Hematocrit 41.1 L ABG Hemoglobin 13.2 L ABG Oxyhemoglobin 95.8 ABG Carboxyhemoglobin 1.0 ABG Methemoglobin 0.5 ABG Deoxyhemoglobin 2.7 Raghav Test POSITIVE A-a O2 Gradient 132.925 H Ionized Calcium 1.2 Mode of Support SIMV Mechanical Rate 15 Inspired O2 40 Tidal Volume 400 Pressure Support 12 PEEP or CPAP 12.0 Sodium 143 141 Potassium 4.0 3.8 Chloride 102 99 Carbon Dioxide 31 Anion Gap 14 BUN 28 H Creatinine 0.65 Estimated GFR (MDRD) Greater than 90 Glucose 153 H Calcium 8.5 CCU Progress Note: A/P - Time Spent with Patient Time: 30 min cc time - Plan Plan: Acute Respiratory Failure requiring mechanical ventilation Influenza A Bilateral PNA Septic Shock Mild metabolic alkalosis Plan: Not weanable yet Cont abx, tamilflu change IVF continue TF prognosis guarded
--- NOTE | 2017-07-02 08:51 | RAD ---
PORTABLE CHEST ONE VIEW: 07/02/2017 3:37 a.m. HISTORY: Respiratory failure. COMPARISON: Exam from the previous day. FINDINGS: Mild interval improvement in the bilateral parenchymal lung changes is seen since the previous day's exam. Endotracheal and nasogastric tubes remain in place. Heart size is stable. POS: [facility]
[2017-07-02] MEDS: Oseltamivir 6 MG/ML ORAL SUSP PO SCH ×2 (09:51→21:14)
[2017-07-02] MEDS: Cefepime 1 GM, Admixture Fee 1 EACH in Sterile Water 10 ML SLOW IVP SCH ×2 (09:51→20:06)
[2017-07-02] MEDS: D5 1/4 NS 1,000 ML IV SCH (11:36)
--- NOTE | 2017-07-02 12:07 | PDOC.PN ---
- Subjective Encounter Start Date: 07/02/17 Encounter Start Time: 12:20 -: non-verbal Subjective: Still on vent, sedated - Objective Resuscitation Status: Resuscitation Status FULL:Full Resuscitation MAR Reviewed: Yes Vital Signs & Weight: Vital Signs (12 hours) Temp Pulse Resp BP Pulse Ox 07/02/17 10:04 75 110/67 07/02/17 08:51 66 111/62 07/02/17 08:00 98.3 F 24 H 07/02/17 06:45 73 22 H 97 07/02/17 06:00 23 H 07/02/17 04:00 99.0 F 23 H 07/02/17 03:06 65 07/02/17 02:00 23 H 07/02/17 00:36 68 22 H 95 Weight Admit Weight 145 lb Weight 145 lb 8.081 oz Most Recent Monitor Data Heart Rate from ECG 67 NIBP 119/66 NIBP BP-Mean 89 Respiration from ECG 26 SpO2 95 I&O: 07/01/17 07/02/17 07/03/17 06:59 06:59 06:59 Intake Total 716 1884.7 Output Total 570 818 122 Balance 146 1066.7 -122 Result Diagrams: 07/02/17 05:39 07/02/17 05:39 Phys Exam - Physical Examination sedated on vent HEENT: moist MMs Respiratory: no rales, no rhonchi, wheezing present Cardiovascular: RRR Gastrointestinal: soft, positive bowel sounds Musculoskeletal: no edema Neurological: non-focal Dx/Plan (1) Acute respiratory failure Code(s): J96.00 - ACUTE RESPIRATORY FAILURE, UNSP W HYPOXIA OR HYPERCAPNIA Status: Acute Qualifiers: Respiratory failure complication: unspecified whether with hypoxia or hypercapnia Qualified Code(s): J96.00 - Acute respiratory failure, unspecified whether with hypoxia or hypercapnia (2) Influenza A Code(s): J10.1 - FLU DUE TO OTH IDENT INFLUENZA VIRUS W OTH RESP MANIFEST Status: Acute Comment: on Tamiflu (3) Pneumonia Code(s): J18.9 - PNEUMONIA, UNSPECIFIED ORGANISM Status: Acute Qualifiers: Pneumonia type: due to influenza A virus Laterality: bilateral (4) Septic shock Code(s): A41.9 - SEPSIS, UNSPECIFIED ORGANISM; R65.21 - SEVERE SEPSIS WITH SEPTIC SHOCK Status: Acute - Plan cont current plan of care, continue antibiotics, respiratory therapy, DVT proph w/lovenox, DVT proph w/SCDs * . - Discharge Day Encounter end time: 12:40
[2017-07-02] MEDS: Enoxaparin Sodium 40 MG/0.4 ML SYRINGE SC SCH (20:06)
[2017-07-03] MEDS: D5 1/4 NS 1,000 ML IV SCH ×2 (00:36→15:24)
[2017-07-03 05:42] LABS: Anion Gap 12 mmol/L (10-20); BUN (Urea Nitrogen) 28 mg/dL (8.4-25.7); Calc. Creatinine Clearance 102 mL/min (70-130); Calcium 8.7 mg/dL (7.8-10.44); Carbon Dioxide 31 mmol/L (23-31); Chloride 101 mmol/L (98-107); Estimated GFR-MDRD Greater than 90; Glucose 235 mg/dL (80-115); Potassium 4.3 mmol/L (3.5-5.1); Sodium 140 mmol/L (136-145)
[2017-07-03 05:43] LABS: #Lymphocytes 0.4 thou/uL (1.20-3.40); #Monocytes 0.3 thou/uL (0.11-0.59); #Neutrophils 5.3 thou/uL (1.40-6.50); %Basophils 0.3 % (0.0-1.0); %Eosinophils 0.1 % (0.0-10.0); %Lymphocytes 6.2 % (21.0-51.0); %Monocytes 5.2 % (0.0-10.0); %Neutrophils 88.1 % (42.0-75.0); Hemoglobin 13.1 g/dL (14.0-18.0); Mean Corpuscular HGB CONC 31.4 g/dL (32.0-36.0); Mean Corpuscular Hemoglobin 30.8 pg (27.0-31.0); Mean Corpuscular Volume 98.3 fl (80.0-94.0); Mean Platelet Volume 6.8 fL (7.4-10.4); Platelet Count 270 thou/uL (130-400); RBC Distribution Width 12.3 % (11.5-14.5); Red Blood Cell (RBC) Count 4.25 mill/uL (4.70-6.10); White Blood Cell (WBC) Count 6.1 thou/uL (4.8-10.8)
[2017-07-03 07:16] LABS: Actual Bicarbonate (HCO3a) 31.2 mEq/L (22-26); Base Excess (BEa) 6.2 mEq/L (0 (+/-) 2.5); CO2 Tension 46.5 mmHg (35.0-45.0); Calcium, Ionized 1.2 mmol/L (1.12-1.30); Hematocrit-ABG 41.8 % (42.0-52.0); O2 Tension (PaO2) 116.2 mmHg (80.0-100.0); pH, Arterial 7.44 (7.35-7.45)
[2017-07-03 07:20] LABS: ALV-art Gradient 112.075 (0-20); Puncture Site RR
--- NOTE | 2017-07-03 09:08 | RAD ---
PORTABLE CHEST 1 VIEW: DATE: 07/03/17. TIME: 5:21 a.m. HISTORY: Respiratory failure. FINDINGS/IMPRESSION: No significant interval change is seen. POS: [facility]
[2017-07-03] MEDS: Cefepime 1 GM, Admixture Fee 1 EACH in Sterile Water 10 ML SLOW IVP SCH ×2 (09:38→20:17)
--- NOTE | 2017-07-03 10:28 | PRG ---
DATE OF SERVICE: 07/03/2017 SUBJECTIVE: He is awake, follows commands for me without limitation. PHYSICAL EXAMINATION: VITAL SIGNS: Temperature is 98.4, pulse 78, blood pressure 132/67. 24 hour intake 2275 and output 1 234. HEENT: Unremarkable. NECK: No JVD. CHEST: Clear anteriorly. CARDIOVASCULAR: S1 and S2, regular. ABDOMEN: Soft, nontender. EXTREMITIES: No edema. LABORATORY DATA: ABG - pH 7.44, PCO2 of 46, pO2 of 116. SIMV rate 15, tidal volume 400, PEEP 12, pr essure support 12, FIO2 40%. White blood cell count 6.1, hematocrit 41.8, platelet count 270. Sodiu m 140, potassium 4.3, chloride 101, CO2 of 31, BUN 28, creatinine 0.6, glucose 235. Chest x-ray demonstrates profound scoliosis, still has infiltrate in left upper lobe region. ASSESSMENT: 1. Acute respiratory failure, requiring mechanical ventilation. 2. Pneumonia. 3. Influenza A. 4. Septic shock, which is resolved. PLAN: The patient's ventilator will be turned down including respiratory rate, and his PEEP. I thin k that he may be ready to undergo spontaneous breathing trial by tomorrow and perhaps extubated. We are continuing antibiotics, Tamiflu, and tube feeds.
[2017-07-03] MEDS: Oseltamivir 6 MG/ML ORAL SUSP PO SCH ×2 (10:33→21:04)
--- NOTE | 2017-07-03 15:36 | PDOC.PN ---
- Subjective Encounter Start Date: 07/03/17 Encounter Start Time: 15:34 Subjective: seen and examined still intubated but doing much better - Objective Resuscitation Status: Resuscitation Status FULL:Full Resuscitation Vital Signs & Weight: Vital Signs (12 hours) Temp Pulse Resp BP Pulse Ox 07/03/17 15:19 94 137/65 07/03/17 14:02 85 132/69 07/03/17 12:00 98.5 F 07/03/17 11:55 87 34 H 97 07/03/17 11:07 66 132/71 07/03/17 10:00 17 07/03/17 09:00 23 H 07/03/17 08:09 74 141/79 H 07/03/17 08:00 99 F 74 24 H 75 L 07/03/17 07:00 98.5 F 07/03/17 06:00 20 07/03/17 04:00 98.4 F 28 H Weight Admit Weight 145 lb Weight 145 lb 8.081 oz Most Recent Monitor Data Heart Rate from ECG 75 NIBP 134/73 NIBP BP-Mean 87 Respiration from ECG 24 SpO2 99 I&O: 07/02/17 07/03/17 07/04/17 06:59 06:59 06:59 Intake Total 1884.7 2275.5 70 Output Total 818 1234 325 Balance 1066.7 1041.5 -255 Result Diagrams: 07/03/17 04:45 07/03/17 04:45 Phys Exam - Physical Examination intubated HEENT: moist MMs, sclera anicteric Neck: no nodes, no JVD, supple, full ROM Respiratory: no wheezing, no rales vented sounds Cardiovascular: RRR Gastrointestinal: soft, positive bowel sounds Musculoskeletal: no edema, pulses present sedated but gradually waking up Dx/Plan (1) ARDS (adult respiratory distress syndrome) Code(s): J80 - ACUTE RESPIRATORY DISTRESS SYNDROME Status: Acute (2) Acute respiratory failure Code(s): J96.00 - ACUTE RESPIRATORY FAILURE, UNSP W HYPOXIA OR HYPERCAPNIA Status: Acute Qualifiers: Respiratory failure complication: unspecified whether with hypoxia or hypercapnia Qualified Code(s): J96.00 - Acute respiratory failure, unspecified whether with hypoxia or hypercapnia (3) Acute respiratory failure requiring reintubation Code(s): J96.00 - ACUTE RESPIRATORY FAILURE, UNSP W HYPOXIA OR HYPERCAPNIA Status: Acute (4) Flu Code(s): J11.1 - FLU DUE TO UNIDENTIFIED INFLUENZA VIRUS W OTH RESP MANIFEST Status: Acute (5) Influenza A Code(s): J10.1 - FLU DUE TO OTH IDENT INFLUENZA VIRUS W OTH RESP MANIFEST Status: Acute Comment: on Tamiflu (6) Pneumonia Code(s): J18.9 - PNEUMONIA, UNSPECIFIED ORGANISM Status: Acute Qualifiers: Pneumonia type: due to influenza A virus Laterality: bilateral (7) Septic shock Code(s): A41.9 - SEPSIS, UNSPECIFIED ORGANISM; R65.21 - SEVERE SEPSIS WITH SEPTIC SHOCK Status: Acute - Plan continue antibiotics, respiratory therapy vent management per the pulmonary team -: May be getting closer to coming off vent--defer to the pulmonary team * .
[2017-07-03] MEDS: Enoxaparin Sodium 40 MG/0.4 ML SYRINGE SC SCH (20:21)
[2017-07-03] MEDS: fentaNYL Citrate/PF 2,000 MCG in Sodium Chloride 0.9% 60 ML IV SCH (20:59)
[2017-07-04 04:23] LABS: #Lymphocytes 0.5 thou/uL (1.20-3.40); #Monocytes 0.4 thou/uL (0.11-0.59); #Neutrophils 7.5 thou/uL (1.40-6.50); %Lymphocytes 5.6 % (21.0-51.0); %Monocytes 4.5 % (0.0-10.0); %Neutrophils 89.9 % (42.0-75.0); Hemoglobin 12.3 g/dL (14.0-18.0); Mean Corpuscular HGB CONC 31.4 g/dL (32.0-36.0); Mean Corpuscular Hemoglobin 31.1 pg (27.0-31.0); Mean Corpuscular Volume 98.9 fl (80.0-94.0); Mean Platelet Volume 6.8 fL (7.4-10.4); Platelet Count 274 thou/uL (130-400); RBC Distribution Width 12.1 % (11.5-14.5); Red Blood Cell (RBC) Count 3.97 mill/uL (4.70-6.10); White Blood Cell (WBC) Count 8.3 thou/uL (4.8-10.8)
[2017-07-04] MEDS: D5 1/4 NS 1,000 ML IV SCH ×2 (04:38→20:11)
[2017-07-04 04:41] LABS: Anion Gap 12 mmol/L (10-20); BUN (Urea Nitrogen) 22 mg/dL (8.4-25.7); Calc. Creatinine Clearance 124 mL/min (70-130); Calcium 8.3 mg/dL (7.8-10.44); Carbon Dioxide 31 mmol/L (23-31); Chloride 100 mmol/L (98-107); Estimated GFR-MDRD Greater than 90; Glucose 223 mg/dL (80-115); Potassium 4.4 mmol/L (3.5-5.1); Sodium 139 mmol/L (136-145)
[2017-07-04 07:15] LABS: Actual Bicarbonate (HCO3a) 31.1 mEq/L (22-26); CO2 Tension 46.8 mmHg (35.0-45.0); Calcium, Ionized 1.2 mmol/L (1.12-1.30); Hematocrit-ABG 40.6 % (42.0-52.0); Hemoglobin (Hb) 12.9 g/dL (14.0-18.0); O2 Tension (PaO2) 78.6 mmHg (80.0-100.0); pH, Arterial 7.44 (7.35-7.45)
[2017-07-04 08:13] LABS: Puncture Site LRA
[2017-07-04] MEDS: Cefepime 1 GM, Admixture Fee 1 EACH in Sterile Water 10 ML SLOW IVP SCH ×2 (09:40→20:23)
[2017-07-04] MEDS: Oseltamivir 6 MG/ML ORAL SUSP PO SCH ×2 (09:41→20:23)
--- NOTE | 2017-07-04 11:41 | PDOC.PN ---
- Subjective Encounter Start Date: 07/04/17 Encounter Start Time: 15:30 -: non-verbal Subjective: Intubated, no changes overnight - Objective Resuscitation Status: Resuscitation Status FULL:Full Resuscitation MAR Reviewed: Yes Vital Signs & Weight: Vital Signs (12 hours) Temp Pulse Resp BP Pulse Ox 07/04/17 10:37 61 144/75 H 07/04/17 08:00 97.7 F 07/04/17 06:46 67 143/74 H 07/04/17 06:44 74 22 H 99 07/04/17 06:00 19 07/04/17 04:00 97.9 F 17 07/04/17 02:10 59 L 07/04/17 02:00 14 07/04/17 00:09 65 13 100 07/04/17 00:00 98.0 F 15 Weight Admit Weight 145 lb Weight 166 lb 0.129 oz Most Recent Monitor Data Heart Rate from ECG 65 NIBP 139/79 NIBP BP-Mean 86 Respiration from ECG 17 SpO2 100 I&O: 07/03/17 07/04/17 07/05/17 06:59 06:59 06:59 Intake Total 2275.5 3487.2 Output Total 1234 1205 100 Balance 1041.5 2282.2 -100 Result Diagrams: 07/04/17 03:55 07/04/17 03:55 Phys Exam - Physical Examination sedated on vent HEENT: moist MMs Respiratory: no wheezing, no rales, no rhonchi Cardiovascular: RRR Gastrointestinal: soft, non-tender, positive bowel sounds Musculoskeletal: no edema significant varicosities in bilateral feet Neurological: non-focal Dx/Plan (1) Acute respiratory failure Code(s): J96.00 - ACUTE RESPIRATORY FAILURE, UNSP W HYPOXIA OR HYPERCAPNIA Status: Acute Qualifiers: Respiratory failure complication: unspecified whether with hypoxia or hypercapnia Qualified Code(s): J96.00 - Acute respiratory failure, unspecified whether with hypoxia or hypercapnia (2) Influenza A Code(s): J10.1 - FLU DUE TO OTH IDENT INFLUENZA VIRUS W OTH RESP MANIFEST Status: Acute Comment: on Tamiflu (3) Pneumonia Code(s): J18.9 - PNEUMONIA, UNSPECIFIED ORGANISM Status: Acute Qualifiers: Pneumonia type: due to influenza A virus Laterality: bilateral (4) Septic shock Code(s): A41.9 - SEPSIS, UNSPECIFIED ORGANISM; R65.21 - SEVERE SEPSIS WITH SEPTIC SHOCK Status: Resolved - Plan cont current plan of care, continue antibiotics, DVT proph w/lovenox, DVT proph w/SCDs Vent management by pulmonology, wean as able * . - Discharge Day Encounter end time: 15:55
[2017-07-04] MEDS ORDERED: Furosemide 20 MG/2 ML VIAL SLOW IVP SCH (16:00)
[2017-07-04] MEDS: Enoxaparin Sodium 40 MG/0.4 ML SYRINGE SC SCH (20:23)
--- NOTE | 2017-07-04 22:53 | PRG ---
DATE OF SERVICE: 07/04/2017 SERVICE: Pulmonary Medicine. INTERVAL HISTORY: The patient is doing great from a respiratory standpoint. Oxygen requirements hav e improved dramatically. He cannot provide me any additional elements of the history, because he is currently sedated. That being said, we onto a spontaneous breathing trial when we interrupted his sedation and he is doing fantastic. Otherwise, there is no interval change to his condition and the nurses report no overnight events. PHYSICAL EXAMINATION: VITAL SIGNS: Afebrile with a T-max of 100.5 yesterday morning. Pulse 81, blood pressure 114/73, res pirations 22, saturation 99% on 30% FiO2 and a PEEP of 5. GENERAL: The patient is intubated and sedated. HEENT: Normocephalic, atraumatic. Sclerae are white, conjunctivae pink. Oral and nasal mucosa is m oist without lesions. LUNGS: Decent air entry. Dependent crackles are present. There is a slightly prolonged expiratory phase, but I do not hear much in the way of rhonchi or wheezing right now. HEART: Normal rate, regular. ABDOMEN: Soft, nontender, nondistended. Bowel sounds are positive. MUSCULOSKELETAL: No cyanosis or clubbing. There is no pitting in the bilateral lower extremities. NEUROLOGIC: Grossly nonfocal. LABORATORY DATA: WBC 8.3, hemoglobin 12.3, platelets 274,000. A pH of 7.44, pCO2 of 47, pO2 of 79 o n 40% FiO2 and a PEEP of 8 at that time. Basic metabolic profile is completely unremarkable. Glucos e 131. The patient was 2.2 liters positive over the last 24 hours. IMAGING: Chest x-ray demonstrates no significant interval change. There is scoliosis present. Endo tracheal tube is in good position with a widened carinal angle. Enteric catheters coursing well belo w the level of the diaphragm. There are some interstitial and alveolar infiltrates, which are more p redominant on the left compared to the right, but otherwise, I do not appreciate much in the way of a n acute cardiopulmonary process. ASSESSMENT: 1. Acute hypoxic respiratory failure, much improved. 2. Community-acquired pneumonia secondary to influenza A. 3. Septic shock, resolving. PLAN: We will continue to decrease his oxygen. I will provide him with 1 small dose of Lasix today. We will give him a spontaneous breathing trial. At the end of it, if mentation allows, extubation will be considered. Empiric antibiotics will be continued. CRITICAL CARE TIME: 30 minutes.
[2017-07-05 04:29] LABS: Anion Gap 12 mmol/L (10-20); BUN (Urea Nitrogen) 18 mg/dL (8.4-25.7); Calc. Creatinine Clearance 133 mL/min (70-130); Calcium 8.3 mg/dL (7.8-10.44); Carbon Dioxide 32 mmol/L (23-31); Chloride 93 mmol/L (98-107); Estimated GFR-MDRD Greater than 90; Glucose 94 mg/dL (80-115); Potassium 4.1 mmol/L (3.5-5.1); Sodium 133 mmol/L (136-145)
[2017-07-05 05:05] LABS: Band 2 % (5-11); Eosinophils 1 % (0-10); Hemoglobin 13.3 g/dL (14.0-18.0); Lymphocytes 9 % (21-51); MDiff Complete? YES; Mean Corpuscular HGB CONC 32.3 g/dL (32.0-36.0); Mean Corpuscular Hemoglobin 31.4 pg (27.0-31.0); Mean Corpuscular Volume 97.1 fl (80.0-94.0); Mean Platelet Volume 6.9 fL (7.4-10.4); Monocytes 7 % (0-10); Neutrophil 81 % (42-75); PLT Morphology Comment Appears Adequate; Platelet Count 280 thou/uL (130-400); Red Blood Cell (RBC) Count 4.23 mill/uL (4.70-6.10); White Blood Cell (WBC) Count 12.6 thou/uL (4.8-10.8)
[2017-07-05] MEDS: D5 1/4 NS 1,000 ML IV SCH ×3 (05:40→23:08)
[2017-07-05] MEDS: Oseltamivir 6 MG/ML ORAL SUSP PO SCH ×2 (09:45→21:37)
[2017-07-05] MEDS: Cefepime 1 GM, Admixture Fee 1 EACH in Sterile Water 10 ML SLOW IVP SCH ×2 (09:45→21:36)
--- NOTE | 2017-07-05 12:21 | PDOC.PN ---
- Subjective Encounter Start Date: 07/05/17 Encounter Start Time: 12:15 Subjective: Some back pain from lying in bed. Extubated and doing well, transfer to -: floor written by pulmonology already. - Objective Resuscitation Status: Resuscitation Status DNR:Do Not Resuscitate MAR Reviewed: Yes Vital Signs & Weight: Vital Signs (12 hours) Temp Pulse Resp Pulse Ox 07/05/17 08:41 105 H 28 H 96 07/05/17 08:00 98.4 F 94 21 H 07/05/17 04:00 98.6 F 07/05/17 03:53 94 L 07/05/17 00:38 86 27 H 94 L Weight Admit Weight 145 lb Weight 158 lb 11.725 oz Most Recent Monitor Data Heart Rate from ECG 104 NIBP 147/83 NIBP BP-Mean 109 Respiration from ECG 29 SpO2 95 I&O: 07/04/17 07/05/17 07/06/17 06:59 06:59 06:59 Intake Total 3487.2 2137.2 300 Output Total 1205 3900 720 Balance 2282.2 -1762.8 -420 Result Diagrams: 07/05/17 03:25 07/05/17 03:25 Additional Labs: Accuchecks 07/04/17 07/04/17 19:44 13:26 POC Glucose 92 131 H Phys Exam - Physical Examination Constitutional: NAD HEENT: moist MMs Respiratory: no wheezing, no rales, no rhonchi Cardiovascular: RRR, no significant murmur Gastrointestinal: soft, positive bowel sounds Neurological: non-focal, moves all 4 limbs Psychiatric: normal affect Deviation from normal: some MR apparent on exam Dx/Plan (1) Acute respiratory failure Code(s): J96.00 - ACUTE RESPIRATORY FAILURE, UNSP W HYPOXIA OR HYPERCAPNIA Status: Resolved Qualifiers: Respiratory failure complication: unspecified whether with hypoxia or hypercapnia Qualified Code(s): J96.00 - Acute respiratory failure, unspecified whether with hypoxia or hypercapnia Comment: extubated (2) Influenza A Code(s): J10.1 - FLU DUE TO OTH IDENT INFLUENZA VIRUS W OTH RESP MANIFEST Status: Acute Comment: on Tamiflu (3) Pneumonia Code(s): J18.9 - PNEUMONIA, UNSPECIFIED ORGANISM Status: Acute Qualifiers: Pneumonia type: due to influenza A virus Laterality: bilateral (4) Septic shock Code(s): A41.9 - SEPSIS, UNSPECIFIED ORGANISM; R65.21 - SEVERE SEPSIS WITH SEPTIC SHOCK Status: Resolved - Plan cont current plan of care, continue antibiotics, DVT proph w/lovenox, DVT proph w/SCDs transfer to floor -: case management to research patient's home/family situation -: home once weaned off oxygen * . - Discharge Day Encounter end time: 12:30
[2017-07-05] MEDS: Enoxaparin Sodium 40 MG/0.4 ML SYRINGE SC SCH (21:36)
[2017-07-05] MEDS ORDERED: Acetaminophen 325 MG TAB PO PRN (22:22)
[2017-07-05] MEDS: HYDROcodone/Acetaminophen 5/325 mg Tablet PO PRN (23:07)
[2017-07-06 05:14] LABS: #Basophils 0.1 thou/uL (0.0-0.2); #Eosinphils 0.1 thou/uL (0.0-0.7); #Monocytes 0.8 thou/uL (0.11-0.59); #Neutrophils 11.4 thou/uL (1.40-6.50); %Basophils 0.4 % (0.0-1.0); %Eosinophils 0.9 % (0.0-10.0); %Lymphocytes 7.7 % (21.0-51.0); %Monocytes 5.9 % (0.0-10.0); %Neutrophils 85.1 % (42.0-75.0); Hemoglobin 13.7 g/dL (14.0-18.0); Mean Corpuscular HGB CONC 32.4 g/dL (32.0-36.0); Mean Corpuscular Volume 95.8 fl (80.0-94.0); Mean Platelet Volume 6.7 fL (7.4-10.4); Platelet Count 286 thou/uL (130-400); RBC Distribution Width 11.9 % (11.5-14.5); Red Blood Cell (RBC) Count 4.41 mill/uL (4.70-6.10); White Blood Cell (WBC) Count 13.4 thou/uL (4.8-10.8)
[2017-07-06 05:20] LABS: Anion Gap 11 mmol/L (10-20); BUN (Urea Nitrogen) 12 mg/dL (8.4-25.7); Calc. Creatinine Clearance 135 mL/min (70-130); Carbon Dioxide 28 mmol/L (23-31); Chloride 92 mmol/L (98-107); Estimated GFR-MDRD Greater than 90; Glucose 94 mg/dL (80-115); Potassium 4.1 mmol/L (3.5-5.1); Sodium 127 mmol/L (136-145)
[2017-07-06] MEDS: HYDROcodone/Acetaminophen 5/325 mg Tablet PO PRN ×2 (06:12→20:45)
--- NOTE | 2017-07-06 06:13 | PRG ---
DATE: 07/05/2017 Mr. Swartz is evaluated today. He is slow to respond to questions, but he is in no distress. He tells me that he lives with his uncle. He is not employed. Currently, he presented with viral illness consisting of nausea, vomiting, and diarrhea as well as a cough. His flu swab positive, subsequently was intubated and transferred here. The only past medical history that I have from this admission is that he had a brain tumor as a child which may be would explain his current mental status. There is no family for me to discuss current functional status or premorbid functional status. PHYSICAL EXAMINATION: VITAL SIGNS: Upon reviewing the records have been stable. He is afebrile. Heart rate is in the 90s , respiratory rate is in the teens, oximetry is 93 on 4 liters. Blood pressure this evening is 154/8 6. Intake and output was positive 2282 today. He is up about 4-1/2 liters. LUNGS: Clear anteriorly. HEART: Regular rhythm. ABDOMEN: Soft. He had no guarding. EXTREMITIES: His feet were warm. He had no asymmetry. LABORATORY DATA: White count 12.6, hemoglobin 13.3, platelets 280,000. Sodium 133, potassium 4.1, chloride 93, bicarbonate 32, BUN 18, creatinine 0.55. IMPRESSION: Status post mechanical ventilation, it is the result of a flu-like illness. He had bila teral infiltrates on admission. It is unclear whether or not these were related to the influenza. Gudelia hernandez the improvement of his radiograph reviewing serial films, I would argue that this was noncardiog enic pulmonary edema. He had a normal ejection fraction on admitting echocardiogram. In any event, he appears to be clinically stable to move out of the Critical Care Unit.
[2017-07-06] MEDS: Oseltamivir 6 MG/ML ORAL SUSP PO SCH ×2 (10:03→20:44)
[2017-07-06] MEDS: Cefepime 1 GM, Admixture Fee 1 EACH in Sterile Water 10 ML SLOW IVP SCH ×2 (10:03→20:44)
[2017-07-06] MEDS: D5 1/4 NS 1,000 ML IV SCH (16:03)
--- NOTE | 2017-07-06 18:24 | PDOC.PN ---
- Subjective Encounter Start Date: 07/06/17 Encounter Start Time: 12:30 Subjective: Patient without complaints. Still requiring oxygen. Reports he lives at his -: father's house with his uncle. - Objective Resuscitation Status: Resuscitation Status DNR:Do Not Resuscitate MAR Reviewed: Yes Vital Signs & Weight: Vital Signs (12 hours) Temp Pulse Resp BP Pulse Ox Pulse Ox Pulse Ox 07/06/17 10:13 83 L 92 L 07/06/17 08:45 103 H 24 H 94 L 07/06/17 08:00 97.6 F 101 H 18 165/88 H 91 L Pulse Ox 07/06/17 10:13 92 L 07/06/17 08:45 07/06/17 08:00 Weight Admit Weight 145 lb Weight 156 lb 8.451 oz Most Recent Monitor Data Heart Rate from ECG 95 NIBP 136/74 NIBP BP-Mean 93 Respiration from ECG 29 SpO2 97 I&O: 07/05/17 07/06/17 07/07/17 06:59 06:59 06:59 Intake Total 2137.2 1417 Output Total 3900 1440 Balance -1762.8 -23 Result Diagrams: 07/06/17 03:47 07/06/17 03:47 Phys Exam - Physical Examination Constitutional: NAD HEENT: moist MMs Respiratory: no wheezing, no rales, no rhonchi Cardiovascular: RRR, no significant murmur Gastrointestinal: soft, positive bowel sounds Neurological: non-focal, moves all 4 limbs Deviation from normal: flat, slow responses, appears to have some MR Dx/Plan (1) Acute respiratory failure Code(s): J96.00 - ACUTE RESPIRATORY FAILURE, UNSP W HYPOXIA OR HYPERCAPNIA Status: Resolved Qualifiers: Respiratory failure complication: unspecified whether with hypoxia or hypercapnia Qualified Code(s): J96.00 - Acute respiratory failure, unspecified whether with hypoxia or hypercapnia Comment: extubated (2) Influenza A Code(s): J10.1 - FLU DUE TO OTH IDENT INFLUENZA VIRUS W OTH RESP MANIFEST Status: Acute Comment: on Tamiflu (3) Pneumonia Code(s): J18.9 - PNEUMONIA, UNSPECIFIED ORGANISM Status: Acute Qualifiers: Pneumonia type: due to influenza A virus Laterality: bilateral (4) Septic shock Code(s): A41.9 - SEPSIS, UNSPECIFIED ORGANISM; R65.21 - SEVERE SEPSIS WITH SEPTIC SHOCK Status: Resolved - Plan cont current plan of care, continue antibiotics, PT/OT, social science professor Case management to find family and home situation, will need placement. -: Wean O2 as able. * . - Discharge Day Encounter end time: 12:45
[2017-07-06] MEDS: Enoxaparin Sodium 40 MG/0.4 ML SYRINGE SC SCH (20:45)
[2017-07-07] MEDS: D5 1/4 NS 1,000 ML IV SCH ×2 (05:12→18:32)
[2017-07-07 05:41] LABS: #Eosinphils 0.1 thou/uL (0.0-0.7); #Lymphocytes 1.2 thou/uL (1.20-3.40); #Monocytes 1.1 thou/uL (0.11-0.59); #Neutrophils 11.3 thou/uL (1.40-6.50); %Basophils 0.2 % (0.0-1.0); %Lymphocytes 8.9 % (21.0-51.0); %Monocytes 7.7 % (0.0-10.0); %Neutrophils 82.3 % (42.0-75.0); Hemoglobin 14.7 g/dL (14.0-18.0); Mean Corpuscular HGB CONC 32.7 g/dL (32.0-36.0); Mean Corpuscular Hemoglobin 31.3 pg (27.0-31.0); Mean Corpuscular Volume 95.6 fl (80.0-94.0); Mean Platelet Volume 6.5 fL (7.4-10.4); Platelet Count 383 thou/uL (130-400); RBC Distribution Width 12.2 % (11.5-14.5); Red Blood Cell (RBC) Count 4.69 mill/uL (4.70-6.10); White Blood Cell (WBC) Count 13.7 thou/uL (4.8-10.8)
[2017-07-07 06:13] LABS: Anion Gap 10 mmol/L (10-20); BUN (Urea Nitrogen) 10 mg/dL (8.4-25.7); Calc. Creatinine Clearance 129 mL/min (70-130); Calcium 8.5 mg/dL (7.8-10.44); Carbon Dioxide 27 mmol/L (23-31); Chloride 96 mmol/L (98-107); Estimated GFR-MDRD Greater than 90; Glucose 104 mg/dL (80-115); Potassium 4.3 mmol/L (3.5-5.1); Sodium 129 mmol/L (136-145)
[2017-07-07] MEDS: Cefepime 1 GM, Admixture Fee 1 EACH in Sterile Water 10 ML SLOW IVP SCH (08:48)
[2017-07-07] MEDS: Oseltamivir 6 MG/ML ORAL SUSP PO SCH (08:49)
--- NOTE | 2017-07-07 12:15 | PDOC.PN ---
- Subjective Encounter Start Date: 07/07/17 Encounter Start Time: 12:30 Subjective: No complaints. Still requiring oxygen. - Objective Resuscitation Status: Resuscitation Status DNR:Do Not Resuscitate MAR Reviewed: Yes Vital Signs & Weight: Vital Signs (12 hours) Temp Pulse Resp BP Pulse Ox 07/07/17 11:46 97.6 F 90 20 121/73 91 L 07/07/17 08:06 97.8 F 99 20 151/77 H 92 L 07/07/17 08:00 97.8 F 99 20 92 L 07/07/17 06:46 98 28 H 97 Weight Admit Weight 145 lb Weight 160 lb 14.999 oz Most Recent Monitor Data Heart Rate from ECG 95 NIBP 136/74 NIBP BP-Mean 93 Respiration from ECG 29 SpO2 97 I&O: 07/06/17 07/07/17 07/08/17 06:59 06:59 06:59 Intake Total 1417 Output Total 1440 4450 Balance -23 -4450 Result Diagrams: 07/07/17 05:13 07/07/17 05:13 Phys Exam - Physical Examination Constitutional: NAD HEENT: moist MMs Respiratory: no wheezing rales in bases, left more than right Cardiovascular: RRR, no significant murmur Gastrointestinal: soft, positive bowel sounds Musculoskeletal: no edema Neurological: non-focal, moves all 4 limbs Deviation from normal: flattened affect, MR Dx/Plan (1) Acute respiratory failure Code(s): J96.00 - ACUTE RESPIRATORY FAILURE, UNSP W HYPOXIA OR HYPERCAPNIA Status: Resolved Qualifiers: Respiratory failure complication: unspecified whether with hypoxia or hypercapnia Qualified Code(s): J96.00 - Acute respiratory failure, unspecified whether with hypoxia or hypercapnia Comment: extubated, still high oxygen requirement (2) Influenza A Code(s): J10.1 - FLU DUE TO OTH IDENT INFLUENZA VIRUS W OTH RESP MANIFEST Status: Acute Comment: Completed >5 day course Tamiflu, now d/c'd (3) Pneumonia Code(s): J18.9 - PNEUMONIA, UNSPECIFIED ORGANISM Status: Acute Qualifiers: Pneumonia type: due to influenza A virus Laterality: bilateral (4) Septic shock Code(s): A41.9 - SEPSIS, UNSPECIFIED ORGANISM; R65.21 - SEVERE SEPSIS WITH SEPTIC SHOCK Status: Resolved - Plan cont current plan of care Can likely d/c antibiotics as he has already had 8 days of Cefepime and -: Levaquin. Will likely need SNF/rehab when approved to d/c by pulmonology. * . - Discharge Day Encounter end time: 13:00
[2017-07-07] MEDS: Enoxaparin Sodium 40 MG/0.4 ML SYRINGE SC SCH (19:58)
[2017-07-08 05:49] LABS: #Eosinphils 0.2 thou/uL (0.0-0.7); #Lymphocytes 1.6 thou/uL (1.20-3.40); #Monocytes 1.7 thou/uL (0.11-0.59); #Neutrophils 11.6 thou/uL (1.40-6.50); %Basophils 0.1 % (0.0-1.0); %Eosinophils 1.1 % (0.0-10.0); %Lymphocytes 10.5 % (21.0-51.0); %Monocytes 11.5 % (0.0-10.0); %Neutrophils 76.8 % (42.0-75.0); Hemoglobin 15.1 g/dL (14.0-18.0); Mean Corpuscular HGB CONC 33.1 g/dL (32.0-36.0); Mean Corpuscular Hemoglobin 31.8 pg (27.0-31.0); Mean Corpuscular Volume 96.1 fl (80.0-94.0); Mean Platelet Volume 6.8 fL (7.4-10.4); Platelet Count 418 thou/uL (130-400); RBC Distribution Width 12.6 % (11.5-14.5); Red Blood Cell (RBC) Count 4.74 mill/uL (4.70-6.10); White Blood Cell (WBC) Count 15.1 thou/uL (4.8-10.8)
[2017-07-08 06:13] LABS: Anion Gap 12 mmol/L (10-20); BUN (Urea Nitrogen) 13 mg/dL (8.4-25.7); Calc. Creatinine Clearance 136 mL/min (70-130); Calcium 8.3 mg/dL (7.8-10.44); Carbon Dioxide 21 mmol/L (23-31); Chloride 97 mmol/L (98-107); Estimated GFR-MDRD Greater than 90; Glucose 98 mg/dL (80-115); Potassium 4.5 mmol/L (3.5-5.1); Sodium 125 mmol/L (136-145)
[2017-07-08] MEDS: D5 1/4 NS 1,000 ML IV SCH ×2 (07:59→20:39)
--- NOTE | 2017-07-08 13:19 | PDOC.PN ---
- Subjective Encounter Start Date: 07/08/17 Encounter Start Time: 13:18 Subjective: Seen and examined-refusing to be turned on the bed - Objective Resuscitation Status: Resuscitation Status DNR:Do Not Resuscitate Vital Signs & Weight: Vital Signs (12 hours) Temp Pulse Resp BP Pulse Ox 07/08/17 11:44 96 20 93 L 07/08/17 08:00 98.3 F 93 18 95 07/08/17 07:39 98.3 F 93 18 137/79 95 07/08/17 06:43 95 22 H 92 L Weight Admit Weight 145 lb Weight 160 lb 14.999 oz Most Recent Monitor Data Heart Rate from ECG 95 NIBP 136/74 NIBP BP-Mean 93 Respiration from ECG 29 SpO2 97 I&O: 07/07/17 07/08/17 07/09/17 06:59 06:59 06:59 Intake Total 1510 Output Total 4450 3100 Balance -4450 -1590 Result Diagrams: 07/08/17 04:48 07/08/17 04:48 Phys Exam - Physical Examination Constitutional: NAD HEENT: PERRLA, moist MMs, sclera anicteric, TM's clear, oral pharynx no lesions Neck: no nodes, no JVD Respiratory: no wheezing, no rales, no rhonchi, clear to auscultation bilateral Cardiovascular: RRR, no significant murmur, no rub Gastrointestinal: soft, non-tender, no distention, positive bowel sounds Musculoskeletal: no edema, pulses present, edema present Dx/Plan (1) ARDS (adult respiratory distress syndrome) Code(s): J80 - ACUTE RESPIRATORY DISTRESS SYNDROME Status: Acute (2) Acute respiratory failure Code(s): J96.00 - ACUTE RESPIRATORY FAILURE, UNSP W HYPOXIA OR HYPERCAPNIA Status: Resolved Qualifiers: Respiratory failure complication: unspecified whether with hypoxia or hypercapnia Qualified Code(s): J96.00 - Acute respiratory failure, unspecified whether with hypoxia or hypercapnia Comment: extubated, still high oxygen requirement (3) Acute respiratory failure requiring reintubation Code(s): J96.00 - ACUTE RESPIRATORY FAILURE, UNSP W HYPOXIA OR HYPERCAPNIA Status: Acute (4) Flu Code(s): J11.1 - FLU DUE TO UNIDENTIFIED INFLUENZA VIRUS W OTH RESP MANIFEST Status: Acute (5) Influenza A Code(s): J10.1 - FLU DUE TO OTH IDENT INFLUENZA VIRUS W OTH RESP MANIFEST Status: Acute Comment: Completed >5 day course Tamiflu, now d/c'd (6) Pneumonia Code(s): J18.9 - PNEUMONIA, UNSPECIFIED ORGANISM Status: Acute Qualifiers: Pneumonia type: due to influenza A virus Laterality: bilateral (7) Septic shock Code(s): A41.9 - SEPSIS, UNSPECIFIED ORGANISM; R65.21 - SEVERE SEPSIS WITH SEPTIC SHOCK Status: Resolved - Plan plan discussed w/ family, PT/OT, oncology social work, respiratory therapy Off antibiotics -: Dispo planning to SNF * .
[2017-07-08] MEDS: Enoxaparin Sodium 40 MG/0.4 ML SYRINGE SC SCH (20:39)
[2017-07-09 04:38] LABS: #Eosinphils 0.2 thou/uL (0.0-0.7); #Lymphocytes 1.9 thou/uL (1.20-3.40); #Monocytes 1.7 thou/uL (0.11-0.59); #Neutrophils 8.5 thou/uL (1.40-6.50); %Basophils 0.2 % (0.0-1.0); %Eosinophils 1.9 % (0.0-10.0); %Lymphocytes 15.3 % (21.0-51.0); %Monocytes 13.9 % (0.0-10.0); %Neutrophils 68.8 % (42.0-75.0); Hemoglobin 14.4 g/dL (14.0-18.0); Mean Corpuscular HGB CONC 33.2 g/dL (32.0-36.0); Mean Corpuscular Hemoglobin 31.7 pg (27.0-31.0); Mean Corpuscular Volume 95.5 fl (80.0-94.0); Mean Platelet Volume 6.7 fL (7.4-10.4); Platelet Count 432 thou/uL (130-400); RBC Distribution Width 12.5 % (11.5-14.5); Red Blood Cell (RBC) Count 4.55 mill/uL (4.70-6.10); White Blood Cell (WBC) Count 12.3 thou/uL (4.8-10.8)
[2017-07-09 04:43] LABS: Anion Gap 9 mmol/L (10-20); BUN (Urea Nitrogen) 14 mg/dL (8.4-25.7); Calc. Creatinine Clearance 134 mL/min (70-130); Calcium 8.4 mg/dL (7.8-10.44); Carbon Dioxide 27 mmol/L (23-31); Chloride 97 mmol/L (98-107); Estimated GFR-MDRD Greater than 90; Glucose 98 mg/dL (80-115); Potassium 4.9 mmol/L (3.5-5.1); Sodium 128 mmol/L (136-145)
[2017-07-09] MEDS: D5 1/4 NS 1,000 ML IV SCH ×2 (08:17→20:28)
--- NOTE | 2017-07-09 18:48 | PDOC.PN ---
- Subjective Encounter Start Date: 07/09/17 Encounter Start Time: 18:47 Subjective: Seen and examined no new complaint - Objective Resuscitation Status: Resuscitation Status DNR:Do Not Resuscitate Vital Signs & Weight: Vital Signs (12 hours) Temp Pulse Resp BP Pulse Ox 07/09/17 18:43 83 16 91 L 07/09/17 08:00 97.5 F L 83 20 07/09/17 07:37 97.5 F L 83 20 129/74 90 L Weight Admit Weight 145 lb Weight 160 lb 14.999 oz Most Recent Monitor Data Heart Rate from ECG 95 NIBP 136/74 NIBP BP-Mean 93 Respiration from ECG 29 SpO2 97 I&O: 07/08/17 07/09/17 07/10/17 06:59 06:59 06:59 Intake Total 1510 2565 Output Total 3100 2375 800 Balance -1590 190 -800 Result Diagrams: 07/09/17 04:03 07/09/17 04:03 Phys Exam - Physical Examination Constitutional: NAD HEENT: PERRLA, moist MMs, sclera anicteric, TM's clear Neck: no nodes, no JVD, supple, full ROM Respiratory: no wheezing, no rales, no rhonchi Cardiovascular: RRR, no significant murmur, no rub Gastrointestinal: soft, non-tender, no distention, positive bowel sounds Dx/Plan (1) ARDS (adult respiratory distress syndrome) Code(s): J80 - ACUTE RESPIRATORY DISTRESS SYNDROME Status: Acute (2) Acute respiratory failure Code(s): J96.00 - ACUTE RESPIRATORY FAILURE, UNSP W HYPOXIA OR HYPERCAPNIA Status: Resolved Qualifiers: Respiratory failure complication: unspecified whether with hypoxia or hypercapnia Qualified Code(s): J96.00 - Acute respiratory failure, unspecified whether with hypoxia or hypercapnia Comment: extubated, still high oxygen requirement (3) Acute respiratory failure requiring reintubation Code(s): J96.00 - ACUTE RESPIRATORY FAILURE, UNSP W HYPOXIA OR HYPERCAPNIA Status: Acute (4) Flu Code(s): J11.1 - FLU DUE TO UNIDENTIFIED INFLUENZA VIRUS W OTH RESP MANIFEST Status: Acute (5) Influenza A Code(s): J10.1 - FLU DUE TO OTH IDENT INFLUENZA VIRUS W OTH RESP MANIFEST Status: Acute Comment: Completed >5 day course Tamiflu, now d/c'd (6) Pneumonia Code(s): J18.9 - PNEUMONIA, UNSPECIFIED ORGANISM Status: Acute Qualifiers: Pneumonia type: due to influenza A virus Laterality: bilateral (7) Septic shock Code(s): A41.9 - SEPSIS, UNSPECIFIED ORGANISM; R65.21 - SEVERE SEPSIS WITH SEPTIC SHOCK Status: Resolved - Plan plan discussed w/ family, PT/OT, social insurance administrator Referrals made--awaiting acceptance/placement * .
[2017-07-09] MEDS: Enoxaparin Sodium 40 MG/0.4 ML SYRINGE SC SCH (20:28)
[2017-07-10 04:59] LABS: Anion Gap 11 mmol/L (10-20); BUN (Urea Nitrogen) 14 mg/dL (8.4-25.7); Calc. Creatinine Clearance 127 mL/min (70-130); Calcium 8.6 mg/dL (7.8-10.44); Carbon Dioxide 25 mmol/L (23-31); Chloride 96 mmol/L (98-107); Estimated GFR-MDRD Greater than 90; Glucose 102 mg/dL (80-115); Potassium 4.1 mmol/L (3.5-5.1); Sodium 128 mmol/L (136-145)
[2017-07-10 05:22] LABS: Band 1 % (5-11); Hemoglobin 14.6 g/dL (14.0-18.0); Lymphocytes 20 % (21-51); MDiff Complete? YES; Mean Corpuscular HGB CONC 32.7 g/dL (32.0-36.0); Mean Corpuscular Hemoglobin 31.3 pg (27.0-31.0); Mean Platelet Volume 6.5 fL (7.4-10.4); Monocytes 13 % (0-10); Neutrophil 66 % (42-75); Platelet Count 443 thou/uL (130-400); RBC Distribution Width 12.5 % (11.5-14.5); Red Blood Cell (RBC) Count 4.67 mill/uL (4.70-6.10)
[2017-07-10] MEDS: D5 1/4 NS 1,000 ML IV SCH (08:13)
--- NOTE | 2017-07-10 09:39 | PDOC.PN ---
- Subjective Encounter Start Date: 07/10/17 Encounter Start Time: 09:38 Subjective: Seen and examined -no new complaint - Objective Resuscitation Status: Resuscitation Status DNR:Do Not Resuscitate Vital Signs & Weight: Vital Signs (12 hours) Temp Pulse Resp BP Pulse Ox 07/10/17 08:00 98.3 F 86 20 123/74 96 07/10/17 00:38 79 20 96 Weight Admit Weight 145 lb Weight 160 lb 14.999 oz Most Recent Monitor Data Heart Rate from ECG 95 NIBP 136/74 NIBP BP-Mean 93 Respiration from ECG 29 SpO2 97 I&O: 07/09/17 07/10/17 07/11/17 06:59 06:59 06:59 Intake Total 2565 Output Total 2375 2480 Balance 190 -2480 Result Diagrams: 07/10/17 04:07 07/10/17 04:07 Phys Exam - Physical Examination Constitutional: NAD HEENT: PERRLA, moist MMs, sclera anicteric, TM's clear Neck: no nodes, no JVD, supple, full ROM Respiratory: no wheezing, no rales, no rhonchi, clear to auscultation bilateral Cardiovascular: RRR, no significant murmur, no rub Gastrointestinal: soft, non-tender, no distention, positive bowel sounds Musculoskeletal: no edema, pulses present Dx/Plan (1) ARDS (adult respiratory distress syndrome) Code(s): J80 - ACUTE RESPIRATORY DISTRESS SYNDROME Status: Acute (2) Acute respiratory failure Code(s): J96.00 - ACUTE RESPIRATORY FAILURE, UNSP W HYPOXIA OR HYPERCAPNIA Status: Resolved Qualifiers: Respiratory failure complication: unspecified whether with hypoxia or hypercapnia Qualified Code(s): J96.00 - Acute respiratory failure, unspecified whether with hypoxia or hypercapnia Comment: extubated, still high oxygen requirement (3) Acute respiratory failure requiring reintubation Code(s): J96.00 - ACUTE RESPIRATORY FAILURE, UNSP W HYPOXIA OR HYPERCAPNIA Status: Acute (4) Flu Code(s): J11.1 - FLU DUE TO UNIDENTIFIED INFLUENZA VIRUS W OTH RESP MANIFEST Status: Acute (5) Influenza A Code(s): J10.1 - FLU DUE TO OTH IDENT INFLUENZA VIRUS W OTH RESP MANIFEST Status: Acute Comment: Completed >5 day course Tamiflu, now d/c'd (6) Pneumonia Code(s): J18.9 - PNEUMONIA, UNSPECIFIED ORGANISM Status: Acute Qualifiers: Pneumonia type: due to influenza A virus Laterality: bilateral (7) Septic shock Code(s): A41.9 - SEPSIS, UNSPECIFIED ORGANISM; R65.21 - SEVERE SEPSIS WITH SEPTIC SHOCK Status: Resolved - Plan plan discussed w/ family, continue antibiotics, secondary social studies teacher, respiratory therapy Awaiting placement * .
[2017-07-10] MEDS: Enoxaparin Sodium 40 MG/0.4 ML SYRINGE SC SCH (19:54)
[2017-07-11] MEDS: D5 1/4 NS 1,000 ML IV SCH (00:49)
[2017-07-11 04:34] LABS: #Eosinphils 0.2 thou/uL (0.0-0.7); #Lymphocytes 2.1 thou/uL (1.20-3.40); #Monocytes 1.6 thou/uL (0.11-0.59); #Neutrophils 7.8 thou/uL (1.40-6.50); %Basophils 0.3 % (0.0-1.0); %Eosinophils 1.6 % (0.0-10.0); %Monocytes 13.7 % (0.0-10.0); %Neutrophils 66.3 % (42.0-75.0); Hemoglobin 14.2 g/dL (14.0-18.0); Mean Corpuscular HGB CONC 32.8 g/dL (32.0-36.0); Mean Corpuscular Hemoglobin 31.6 pg (27.0-31.0); Mean Corpuscular Volume 96.4 fl (80.0-94.0); Mean Platelet Volume 6.4 fL (7.4-10.4); Platelet Count 426 thou/uL (130-400); RBC Distribution Width 12.4 % (11.5-14.5); White Blood Cell (WBC) Count 11.8 thou/uL (4.8-10.8)
[2017-07-11 04:57] LABS: Anion Gap 11 mmol/L (10-20); BUN (Urea Nitrogen) 12 mg/dL (8.4-25.7); Calc. Creatinine Clearance 120 mL/min (70-130); Calcium 8.7 mg/dL (7.8-10.44); Carbon Dioxide 29 mmol/L (23-31); Chloride 96 mmol/L (98-107); Estimated GFR-MDRD Greater than 90; Glucose 102 mg/dL (80-115); Potassium 4.6 mmol/L (3.5-5.1); Sodium 131 mmol/L (136-145)
[2017-07-11 08:09] VITALS: BMI 31.4
--- NOTE | 2017-07-11 10:21 | PRG ---
DATE OF SERVICE: 07/11/2017 Mr. Swartz is a DNR. He is better. He is no longer hypoxic. PHYSICAL EXAMINATION: VITAL SIGNS: Sats are 95% on room air, temperature 98. Blood pressure 100/73. CHEST: No wheezing, crackles. CARDIAC: Normal S1, S2. IMPRESSION: 1. Respiratory failure. 2. Adult respiratory distress syndrome, resolved. 3. Pneumonia, improved. 4. Influenza. PLAN: Tapering steroids. Discontinue IV fluids. Diet, PT and supportive care. He can be transferr ed out of the ICU at anytime. Transferred off of the medical floor to long-term facility at anytime.
[2017-07-11] MEDS ORDERED: Prevnar 13-Val Conj/PF 0.5 ML SYRINGE IM ONE (17:00)
[2017-07-11 17:55] VITALS: BP 130/78; TEMP 97.7
[2017-07-12] MEDS ORDERED: predniSONE 5 MG TAB PO SCH (08:00)
== END 2017-07-11 18:50 | DRG 870 ==
LOC: CCU 16:36 → T4-A 07-05 17:53
PROVIDERS: ADMIT Family Medicine; ATTEND Family Medicine
PROC: 5A1955Z Respiratory Ventilation, Greater than 96 Consecutive Hours (ICD-10-PCS; principal; 2017-06-30)
DX: A41.9 Sepsis, unspecified organism (principal); J96.01 Acute respiratory failure with hypoxia; R65.21 Severe sepsis with septic shock; J10.01 Influenza due to other identified influenza virus with the same other identified influenza virus pneumonia; E87.1 Hypo-osmolality and hyponatremia; J80 Acute respiratory distress syndrome; Z66 Do not resuscitate; Z86.69 Personal history of other diseases of the nervous system and sense organs; M41.9 Scoliosis, unspecified; I87.309 Chronic venous hypertension (idiopathic) without complications of unspecified lower extremity; K52.9 Noninfective gastroenteritis and colitis, unspecified; F09 Unspecified mental disorder due to known physiological condition
CPT/HCPCS: 36415; 36416; 71010; 80048; 81001; 82805; 83880; 85025; 90471; 90670; 93306; 94002; 94003; 94640; A4216; G0009; G8978-GP-CM; G8979-GP-CJ; G8987-GO-CL; G8988-GO-CJ; J0692; J1650; J1956; J2060; J2270; J2704; J2920; J3010; J7042; J7050; J7620